=== PATIENT | male | born 2000 | race Caucasian/White ===

== ENCOUNTER 2020-08-20 20:41 | Emergency (ER) | payer SELFPAY ==
[~2020-08-20] VITALS: Ht 190.5 cm; Wt 145.0 kg
--- NOTE | 2020-08-20 21:04 | ED Integumentary General ---
General Chief Complaint: Skin/Wound Problems Stated Complaint: PAINFUL LUMP ON TAILBONE Source: patient History of Present Illness Date Seen by Provider: Aug 20, 2020 Time Seen by Provider: 21:01 Initial Comments 20-year-old male presenting with increasing pain and redness and swelling to the top of his buttocks. He states that this started on Wednesday and has progressively worsened. He was seen yesterday in urgent care and was started on an antibiotic that he takes twice a day but he is not sure of the name. He reports that the urgent care felt it was too early to try and perform an incision and drainage of the abscess. His pain is just continue to worsen significantly since yesterday and he is having overall body pain because of weaver ving to sit and move and on positions to keep pressure off of his abscess. He has subjective fever and chills. He denies having symptoms like this in the past. He has had a very small amount of drainage from this area. There is matted material on the abscess and stuck in the hair on it. Timing/Duration: getting worse Severity: severe Possible Cause: no cause identified Allergies and Home Medications Allergies Coded Allergies: No Known Drug Allergies (Unverified , 08/20/20) Home Medications Hydrocodone/Acetaminophen 1 Each Tablet, 1 TAB PO Q4H PRN for PAIN-SEVERE (8-10) Prescribed by: MAYUR BALDERAS on 08/20/20 1171 Patient Home Medication List Home Medication List Reviewed: Yes Review of Systems Review of Systems Constitutional: chills, fever (Subjective) EENTM: no symptoms reported Respiratory: no symptoms reported Cardiovascular: no symptoms reported Gastrointestinal: no symptoms reported Genitourinary: no symptoms reported Musculoskeletal: muscle stiffness (From holding his body in odd positions to keep pressure from the abscess) Skin: see HPI, change in color (Red painful area at the top part of his gluteal cleft) Psychiatric/Neurological: Anxiety Past Xrzvcye-Hgfvnn-Dqjsyp Hx Past Med/Social Hx: Reviewed Nursing Past Med/Soc Hx Patient Social History Alcohol Use: Denies Use Smoking Status: Never a Smoker 2nd Hand Smoke Exposure: No Recent Hopitalizations: No Seasonal Allergies Seasonal Allergies: No Past Medical History Surgeries: No Respiratory: No Cardiac: No Neurological: No Genitourinary: No Gastrointestinal: No Musculoskeletal: No Endocrine: No HEENT: No Cancer: No Psychosocial: No Integumentary: No Blood Disorders: No Adverse Reaction/Blood Tranf: No Physical Exam Vital Signs Vital Signs - First Documented 08/20/20 20:59 Temp 36.1 Pulse 118 Resp 18 B/P (MAP) 147/ Pulse Ox 99 O2 Delivery Room Air Capillary Refill : General Appearance: WD/WN, severe distress (Crying and complaining of severe pain to the area of his abscess), obese HEENT: PERRL/EOMI Neck: full range of motion, supple Cardiovascular: normal peripheral pulses, tachycardia Respiratory: chest non-tender, lungs clear, normal breath sounds Gastrointestinal: normal bowel sounds, non tender, soft Extremities: normal range of motion, normal capillary refill Neurologic/Psychiatric: security patrol officer II-XII nml as tested, alert, oriented x 3 Skin: warm/dry, other (Red, swollen, tender area to the superior portion of his gluteal cleft and towards the left butt cheek) Skin Problem Location: other (Superior gluteal cleft and towards the left buttock cheek) Skin Problem Character: erythema, swelling, tenderness, warm Procedures/Interventions I&D : Site: Pilonidal area/left butt cheek Blade Size: 10 I & D Procedure: sterile dressing applied, Wound Packing Progress After obtaining verbal informed consent the wound was cleaned with chlorhexidine surgical scrub prep. Then using a 1% plain lidocaine approximately 1 mL was infiltrated subcutaneously to help with anesthetic effect. Then a #10 blade scalpel was used to make a incision over the abscess. Then a large and copious amount of blood and purulent material was expressed from the wound. Patient did have some pain but overall tolerated this well. A wound culture was obtained and sent of the purulent drainage. The wound was packed with iodoform gauze after there was no further pus expressed from the wound. Patient was dressed with a sterile clean dry dressing. Counseled to have the packing changed every 24-48 hours and as needed if it falls out. Advised to follow-up through the surgical clinic for continued concerns and may need to have excision of pilonidal cyst. Progress/Results/Core Measures Results/Orders Lab Results Laboratory Tests Test 08/20/20 21:50 Range/Units White Blood Count 13.4 H 4.3-11.0 10^3/uL Red Blood Count 4.59 4.35-5.85 10^6/uL Hemoglobin 13.8 13.3-17.7 G/DL Hematocrit 40 40-54 % Mean Corpuscular Volume 88 80-99 FL Mean Corpuscular Hemoglobin 30 25-34 PG Mean Corpuscular Hemoglobin Concent 34 32-36 G/DL Red Cell Distribution Width 12.2 10.0-14.5 % Platelet Count 192 130-400 10^3/uL Mean Platelet Volume 12.7 H 7.4-10.4 FL Immature Granulocyte % (Auto) 0 % Neutrophils (%) (Auto) 83 H 42-75 % Lymphocytes (%) (Auto) 10 L 12-44 % Monocytes (%) (Auto) 6 0-12 % Eosinophils (%) (Auto) 1 0-10 % Basophils (%) (Auto) 0 0-10 % Neutrophils # (Auto) 11.1 H 1.8-7.8 X 10^3 Lymphocytes # (Auto) 1.3 1.0-4.0 X 10^3 Monocytes # (Auto) 0.8 0.0-1.0 X 10^3 Eosinophils # (Auto) 0.1 0.0-0.3 10^3/uL Basophils # (Auto) 0.0 0.0-0.1 10^3/uL Immature Granulocyte # (Auto) 0.0 0.0-0.1 10^3/uL Sodium Level 139 135-145 MMOL/L Potassium Level 3.8 3.6-5.0 MMOL/L Chloride Level 105 98-107 MMOL/L Carbon Dioxide Level 22 21-32 MMOL/L Anion Gap 12 5-14 MMOL/L Blood Urea Nitrogen 6 L 7-18 MG/DL Creatinine 1.03 0.60-1.30 MG/DL Estimat Glomerular Filtration Rate > 60 BUN/Creatinine Ratio 6 Glucose Level 100 70-105 MG/DL Lactic Acid Level 1.19 0.50-2.00 MMOL/L Calcium Level 9.3 8.5-10.1 MG/DL Corrected Calcium 9.1 8.5-10.1 MG/DL Total Bilirubin 0.3 0.1-1.0 MG/DL Aspartate Amino Transf (AST/SGOT) 16 5-34 U/L Alanine Aminotransferase (ALT/SGPT) 24 0-55 U/L Alkaline Phosphatase 62 40-136 U/L C-Reactive Protein 6.00 H <0.50 MG/DL Total Protein 7.2 6.4-8.2 GM/DL Albumin 4.2 3.2-4.5 GM/DL Smear Scan OK My Orders Orders - MAYUR BALDERAS MD Comprehensive Metabolic Panel (08/20/20 21:46) Ed Iv/Invasive Line Start (08/20/20 21:46) Cbc With Automated Diff (08/20/20 21:46) Ct Abdomen/Pelvis W (08/20/20 21:46) Blood Culture (08/20/20 21:46) Crp Fs (08/20/20 21:46) Lactic Acid Analyzer (08/20/20 21:46) Morphine Injection (Morphine Injection (08/20/20 21:48) Ondansetron Injection (Zofran Injectio (08/20/20 21:48) Ns Iv 1000 Ml (Sodium Chloride 0.9%) (08/20/20 21:48) Ketorolac Injection (Toradol Injection) (08/20/20 21:48) Metronidazole 500mg/100ml Ivpb (Flagyl 5 (08/20/20 21:51) Cefazolin Injection (Ancef Injection) (08/20/20 21:51) Iohexol Injection (Omnipaque 350 Mg/Ml 1 (08/20/20 22:00) Received Contrast (Hold Metformin- Contr (08/20/20 22:00) Ns (Ivpb) (Sodium Chloride 0.9% Ivpb Bag (08/20/20 22:00) Lidocaine 1% Inj 20 Ml (Xylocaine 1% Inj (08/20/20 22:44) Morphine Injection (Morphine Injection (08/20/20 22:44) Wound Dressing-Ed (08/20/20 22:44) Wound Culture (08/20/20 22:44) Rx-Hydrocodone/Apap 5-325 Mg (Rx-Vicodin (08/20/20 23:45) Medications Given in ED Current Medications Medications Dose Ordered Sig/Albin Route Start Time Stop Time Status Last Admin Dose Admin Iohexol 100 ml ONCE ONCE IV 08/20/20 22:00 08/20/20 22:01 DC 08/20/20 22:28 100 ML Sodium Chloride 100 ml ONCE ONCE IV 08/20/20 22:00 08/20/20 22:01 DC 08/20/20 22:28 100 ML Vital Signs/I&O 08/20/20 08/20/20 20:59 23:50 Temp 36.1 Pulse 118 88 Resp 18 18 B/P (MAP) 147/ 141/76 Pulse Ox 99 98 O2 Delivery Room Air Room Air 08/21/20 00:00 Intake Total 1110 ml Balance 1110 ml Progress Progress Note #1: Progress Note Obtain basic labs as well as cultures and lactic acid with a CRP. Order a CT scan with contrast to evaluate the abscess and see how extensive it is. If possible we will try to drain the abscess here in the emergency department and send a culture as well was packed the wound. If it seems to be too extensive to manage here in the emergency department may need to contact [facility] in [place] about possible transfer for surgical intervention. For his pain we will try a dose of morphine, give Zofran to help prevent nausea and vomiting from the morphine, Toradol for inflammation and pain. Give IV fluids for hydration. Start on a dose of Ancef and Flagyl for antibiotic coverage Progress Note #2: Progress Note Labs show a mild elevation of his white blood cell count. He has a normal lactic acid. His chemistry had mild elevation of his glucose. His CT scan did show an abscess with a 3.5 cm collection of fluid. Patient verbally consented for incision and drainage. Given an additional 4 mg of morphine prior to the procedure to assist with pain control. A copious amount of purulent drainage was obtained from the abscess when it was incised and drained. Packing material was placed and the patient tolerated procedure fairly well. Discharged on a few pain pills and have him continue with the Bactrim as prescribed from a clinic. Counseled on follow-up and return precautions. Advised that he may still need to have the pilonidal cyst surgically removed Diagnostic Imaging Diagonstic Imaging: CT Plain Films/CT/US/NM/MRI: abdomen, pelvis Comments Infected cyst or phlegmon developing abscess in the soft tissues in the sacrococcygeal area. This area measures approximately 3.5 cm. There is surrounding edema and inflammation. Read by radiologist Catie Green MD at [phone] and faxed at [phone] Reviewed: Reviewed Night [facility] Study Departure Impression Primary Impression: Pilonidal cyst with abscess Additional Impression: Cellulitis, gluteal, left Disposition: 01 HOME, SELF-CARE Condition: Improved Departure-Patient Inst. Decision time for Depature: 23:40 Referrals: MARIBEL CHAKRABORTY DO NO,LOCAL PHYSICIAN (PCP) Primary Care Physician [facility] Patient Instructions: Abscess Incision and Drainage ED, Cellulitis (Skin In fection), Adult ED, Pilonidal Cyst (DC) Add. Discharge Instructions: Change the packing in the wound every 24 to 48 hours or if it falls out. Otherwise try to keep it covered and keep it dry and clean. Continue to take antibiotics to treat for infection in skin around the wound. Call Dr. Chakraborty to follow up with surgeon about the wound and you will likely need to have pilonidal cyst removed to help prevent this from recurring. Take pain pill 20-30 minutes prior to dressing/packing change All discharge instructions reviewed with patient and/or family. Voiced under standing. Scripts Hydrocodone/Acetaminophen (Hydrocodone-Acetamin 5-325 mg) 1 Each Tablet 1 TAB PO Q4H PRN for PAIN-SEVERE (8-10) for 3 Days, #18 TAB 0 Refills Prov: MAYUR BALDERAS MD 08/20/20 Work/School Note: Work Release Form Date Seen in the Emergency Department: Aug 20, 2020 Return to Work: Aug 23, 2020 Restrictions: No Restrictions Images Torso/Trunk 1 - Cellulitis, Swelling, Tenderness (Tender swollen abscess with surrounding cellulitis. There is fluctuance and erythema with warmth.) MAYUR BALDERAS MD Aug 20, 2020 21:04
[2020-08-20] MEDS ORDERED: KETOROLAC 30 MG/ML VIAL IVP STA (21:48)
[2020-08-20] MEDS ORDERED: NS IV 1000 ML 1,000 ML IV STA (21:48)
[2020-08-20] MEDS ORDERED: ONDANSETRON 4 MG/2 ML (SDV) Z0FRAN IVP STA (21:48)
[2020-08-20] MEDS ORDERED: morphine INJ 10 MG/ML 1ML (SYR OR VIAL) IVP STA ×2 (21:48→22:44)
[2020-08-20] MEDS ORDERED: ceFAZolin INJECTION 1,000 MG in WATER (STERILE) FOR INJECTION 10 ML IV STA (21:51)
[2020-08-20] MEDS ORDERED: metroNIDAZOLE 500MG/100ML IVPB 100 ML IV STA (21:51)
[2020-08-20] MEDS ORDERED: HOLD METFORMIN - RECEIVED CONTRAST 20 ML VIAL IV SCH (22:00)
[2020-08-20] MEDS ORDERED: NS 100 ML (IVPB) BAG IV ONE (22:00)
[2020-08-20 22:02] LABS: EOSINOPHILS % (AUTO) 1 % (0-10); HEMATOCRIT 40 % (40-54); HEMOGLOBIN 13.8 G/DL (13.3-17.7); LYMPHOCYTES % (AUTO) 10 % (12-44); MEAN CORPUSCULAR HEMOGLOBIN 30 PG (25-34); MEAN CORPUSCULAR HGB CONC 34 G/DL (32-36); MEAN CORPUSCULAR VOLUME 88 FL (80-99); MEAN PLATELET VOLUME 12.7 FL (7.4-10.4); MONOCYTES % (AUTO) 6 % (0-12); NEUTROPHILS % (AUTO) 83 % (42-75); PLATELET COUNT 192 10^3/uL (130-400); WHITE BLOOD COUNT 13.4 10^3/uL (4.3-11.0)
[2020-08-20 22:03] LABS: BASOPHILS % (AUTO) 0 % (0-10); EOSINOPHILS # (AUTO) 0.1 10^3/uL (0.0-0.3); LYMPHOCYTES # (AUTO) 1.3 X 10^3 (1.0-4.0); MONOCYTES # (AUTO) 0.8 X 10^3 (0.0-1.0); NEUTROPHILS # (AUTO) 11.1 X 10^3 (1.8-7.8)
[2020-08-20] MEDS: IOHEXOL 350 MG/ML 100 ML (OMNIPAQUE 350) VIAL IV ONE ×2 (22:04→22:28)
[2020-08-20 22:13] LABS: SMEAR SCAN COMMENT OK
[2020-08-20 22:17] LABS: POTASSIUM 3.8 MMOL/L (3.6-5.0); SODIUM 139 MMOL/L (135-145)
[2020-08-20 22:18] LABS: ALANINE AMINOTRANSFERASE 24 U/L (0-55); ALBUMIN 4.2 GM/DL (3.2-4.5); ALKALINE PHOSPHATASE 62 U/L (40-136); BILIRUBIN,TOTAL 0.3 MG/DL (0.1-1.0); BUN/CREATININE RATIO 6; CALCIUM 9.3 MG/DL (8.5-10.1); CARBON DIOXIDE 22 MMOL/L (21-32); CHLORIDE 105 MMOL/L (98-107); CREATININE SERUM 1.03 MG/DL (0.60-1.30); GFR ESTIMATED > 60; GLUCOSE 100 MG/DL (70-105); TOTAL PROTEIN 7.2 GM/DL (6.4-8.2)
[2020-08-20] MEDS ORDERED: LIDOCAINE 1% INJ 20 ML 20 ML VIAL INJ STA (22:44)
[2020-08-20] MEDS ORDERED: ACHD5005 PO (23:44)
[2020-08-20] MEDS ORDERED: RX-HYDROCODONE/APAP 5/325 MG #4 TAB PK PO PRN (23:45)
[2020-08-20 23:50] VITALS: BP 141/76
--- NOTE | 2020-08-21 07:11 | Diagnostic Imaging Report ---
PROCEDURE: CT abdomen and pelvis with contrast. TECHNIQUE: Multiple contiguous axial images were obtained through the abdomen and pelvis after administration of intravenous contrast. Auto Exposure Controls were utilized during the CT exam to meet ALARA standards for radiation dose reduction. All CT scans use one or more of the following dose optimizing techniques: automated exposure control, MA and/or KvP adjustment based on patient size and exam type or iterative reconstruction. INDICATION: Abscess in tailbone. On antibiotic. Redness, swelling, pain to top of gluteal cleft. CORRELATION STUDY: None. FINDINGS: LOWER THORAX: Clear. LIVER: Mild fatty liver with mild nodularity. GALLBLADDER: Present and unremarkable. No bile duct dilatation. SPLEEN: Unremarkable. PANCREAS: Unremarkable. ADRENAL GLANDS: Unremarkable. KIDNEYS: Normal configuration. No calcification or obstruction. ABDOMINAL AORTA: Unremarkable, nonaneurysmal. GASTROINTESTINAL TRACT: No obstruction or inflammation. Normal appendix. URINARY BLADDER: Unremarkable. REPRODUCTIVE: Unremarkable. OSSEOUS STRUCTURES: No acute abnormality. OTHER: Approximately 3.5 cm thick-walled cystic collection in the soft tissues of the superior sacrococcygeal area is present. Surrounding haziness and inflammatory changes present. IMPRESSION: 1. Infected cyst or abscess in the soft tissues of the sacrococcygeal area measuring approximately 3.5 cm. Surrounding edema/inflammation. A preliminary report was provided by [facility]. Dictated by: Dictated on workstation # [id number]
== END 2020-08-20 23:50 | disposition home or self-care (01) ==
LOC: ER FS 20:44
DX: L05.01 Pilonidal cyst with abscess (principal); L03.317 Cellulitis of buttock
CPT/HCPCS: 36415; 74177; 80053; 83605; 85025; 86141; 87040; 87070; 87205

== ENCOUNTER 2020-09-04 11:11 | Emergency (ER) | payer OTHER ==
[~2020-09-04] VITALS: Ht 190.5 cm; Wt 143.1 kg
[~2020-09-04 11:11] MED LIST: ACHD5005 PO
[2020-09-04 11:15] VITALS: BP 155/88
--- NOTE | 2020-09-04 11:20 | ED Integumentary General ---
General Stated Complaint: WOUND CHECK History of Present Illness Date Seen by Provider: Sep 04, 2020 Time Seen by Provider: 11:18 Initial Comments 20-year-old male presents with pilonidal cyst. Patient was seen previously in this ER and started on antibiotics and had a incised. He followed up with Dr. Tello last week and it has been improving. Patient reports that it started to get worse at this time. Patient reports that Dr. Tello indicated that they can watch and at some point later on open up and do further surgery on it. He presents because of worsening pain and feels like his "filling backed up" Allergies and Home Medications Allergies Coded Allergies: No Known Drug Allergies (Unverified , 08/20/20) Home Medications Hydrocodone/Acetaminophen 1 Each Tablet, 1 TAB PO Q4H PRN for PAIN-SEVERE (8-10) Prescribed by: MAYUR BALDERAS on 08/20/20 6786 Patient Home Medication List Home Medication List Reviewed: Yes Review of Systems Review of Systems Constitutional: No chills, No fever Respiratory: No cough Cardiovascular: No chest pain Genitourinary: no symptoms reported Musculoskeletal: see HPI Skin: see HPI Psychiatric/Neurological: No Symptoms Reported Endocrine: No Symptoms Reported Past Aecjdrc-[id number]-Jlzctq Hx Past Med/Social Hx: Reviewed Nursing Past Med/Soc Hx Patient Social History 2nd Hand Smoke Exposure: No Recent Hopitalizations: No Seasonal Allergies Seasonal Allergies: No Past Medical History Surgeries: No Respiratory: No Cardiac: No Neurological: No Genitourinary: No Gastrointestinal: No Musculoskeletal: No Endocrine: No HEENT: No Cancer: No Psychosocial: No Integumentary: No Blood Disorders: No Adverse Reaction/Blood Tranf: No Physical Exam Vital Signs Capillary Refill : General Appearance: no apparent distress Cardiovascular: normal peripheral pulses, regular rate, rhythm Respiratory: chest non-tender, lungs clear Gastrointestinal: non tender, soft Neurologic/Psychiatric: alert, oriented x 3 Progress/Results/Core Measures Progress Progress Note : Time: 11:36 Progress Note When I discussed with patient that we would do a repeat I&D and restart him on antibiotics, he asked that if he could instead be seen by Dr. Tello. Dr. Tello is currently division roadmaster. So I did call Dr. Tello who states that he can see him this afternoon in the ER. Patient is to call his office For an appointment. Based on patient's request no further treatment will be initiated. Patient stable. He reports that he has Dr. Tello's office number and will call upon discharge. Departure Impression Primary Impression: Pilonidal cyst with abscess Disposition: HOME, SELF-CARE Condition: Stable Departure-Patient Inst. Referrals: NO,LOCAL PHYSICIAN (PCP/Family) Primary Care Physician Add. Discharge Instructions: Follow-up with Dr. Tello's office this afternoon. Please call for appointment time upon discharge from the emergency room NAFISA LOAIZA DO Sep 04, 2020 11:20
== END 2020-09-04 11:42 | disposition home or self-care (01) ==
LOC: EDUNIT# 11:11 → ER FS 11:13
DX: L05.01 Pilonidal cyst with abscess (principal)
CPT/HCPCS: 99282

== ENCOUNTER 2020-09-10 08:00 | Outpatient (CLI) | payer OTHER ==
[~2020-09-10] VITALS: Ht 190.5 cm; Wt 145.6 kg
[2020-09-11] MEDS ORDERED: ACHYD1T PO (13:03)
== END 2020-09-10 08:30 | disposition home or self-care (01) ==
LOC: PREOP 08:00
PROVIDERS: ATTEND Surgery
DX: Z01.818 Encounter for other preprocedural examination (principal)

== ENCOUNTER 2020-09-11 09:25 | Day surgery (SDC) | payer OTHER ==
[~2020-09-11] VITALS: Ht 190 cm; Wt 145.6 kg
[2020-09-11] VITALS (11 sets, daily range): BP systolic 120–138; BP diastolic 64–96
[2020-09-11] MEDS ORDERED: ceFAZolin 2 GM IV Premixed 50 ML IV ONE (10:15)
[2020-09-11] MEDS ORDERED: LACTATED RINGERS 1,000 ML IV PRN (10:15)
[2020-09-11] MEDS ORDERED: LIDOCAINE/EPI 1%-1:100,000 (XYLOCAINE) 20ML ONE (11:16)
[2020-09-11] MEDS ORDERED: proPOfol 200 MG/20 ML (DIPRIVAN) VIAL IV ONE ×2 (11:24→12:20)
[2020-09-11] MEDS ORDERED: LIDOCAINE PF 2% 5 ML (XYLOCAINE) VIAL ONE (11:24)
[2020-09-11] MEDS ORDERED: SEVOFLURANE (ULTANE) 15 ML INHAL SOLN ONE (11:24)
[2020-09-11] MEDS ORDERED: ONDANSETRON 4 MG/2 ML (SDV) Z0FRAN ONE (11:24)
[2020-09-11] MEDS ORDERED: ROCURONIUM 10 MG/ML 5 ML SYRINGE IV ONE (11:25)
[2020-09-11] MEDS ORDERED: fentaNYL INJ 100 MCG/2 ML AMP ONE (11:25)
[2020-09-11] MEDS ORDERED: MIDAZOLAM 2 MG/2 ML (VERSED) VIAL ONE (11:25)
--- NOTE | 2020-09-11 12:01 | Progress Note-Pre Operative ---
Pre-Operative Progress Note H&P Reviewed The H&P was reviewed, patient examined and no changes noted. Time Seen by Provider: 11:04 Date H&P Reviewed: Sep 11, 2020 Time H&P Reviewed: 11:05 Pre-Operative Diagnosis: Pilonidal cyst MEETA CLARK DO Sep 11, 2020 12:01
[2020-09-11] MEDS ORDERED: GLYCOPYRROLATE 0.2 MG/ML (ROBINUL) 2 ML VIAL ONE (12:27)
[2020-09-11] MEDS ORDERED: NEOSTIGMINE 3 MG/3 ML VIAL ONE (12:27)
[2020-09-11] MEDS ORDERED: morphine INJ 10 MG/ML 1ML (SYR OR VIAL) IVP ONE (12:45)
[2020-09-11] MEDS ORDERED: HYDROmorphone 2 MG/ML VIAL (DILAUDID) IV ONE (12:45)
[2020-09-11] MEDS ORDERED: ONDANSETRON 4 MG/2 ML (SDV) Z0FRAN IVP PRN (12:45)
--- NOTE | 2020-09-11 13:01 | Progress Note-Post Operative ---
Post-Operative Progess Note Surgeon (s)/Technician Test Systems (s) Surgeon MEETA CLARK DO Technician Test Systems: none Pre-Operative Diagnosis Pilonidal cyst Post-Operative Diagnosis same Procedure & Operative Findings Date of Procedure 09/11/20 Procedure Performed/Findings Excision of Pilonidal cyst with iodophor packing Anesthesia Type GET Estimated Blood Loss Estimated blood loss (mL): less than 5ml Specimens/Packing Specimens Removed pilonidal cyst MEETA CLARK DO Sep 11, 2020 13:01
[2020-09-11] MEDS ORDERED: ACHYD1T PO (13:03)
--- NOTE | 2020-09-11 13:03 | Discharge Inst-Surgical ---
Discharge Inst-Surgical Depart Medication/Instructions New, Converted or Re-Newed RX: RX Given to Pt/Family Patient Instructions Follow up Appt: Make appointment for 1 week. [phone] Instructions: No lifting greater than 20 pounds. No strenuous activity. May shower in 24 hours, no tub bath or soaking. Use incentive spirometer at home as directed. No Smoking Skin/Wound Care: May remove bandages in am. You need to come to the office to have packing changed daily. Symptoms to Report: Appetite Changes, Extremity Discoloration, Numbness/Tingling, Swelling Increased, Bleeding Excessive, Eyesight Changes, Pain Increased, Urine Color Change, Constipation(Persistent), Fever over 101 degree F, Pain/Pressure in chest, Urinating Difficulty, Cough Up/Vomit Blood, Heart Beat Irreg/Pounding, Pain/Pressure in jaw, Cramps in feet or legs, Lightheadedness, Pain/Pressure in shoulder, Diarrhea(Persistent), Memory Changes Suddenly, Questions/Concerns, Weight gain consecutive days, Dizziness/Fainting, Nausea/Vomiting, Shortness of Breath, Weight gain over 2 pounds If questions or concerns contact your physician Or seek help at emergency department. Activity Activity as Tolerated: Yes Activity Instructions: Avoid Stress to Incision Driving Instructions: No Driving/Refer to Dr. Maynard Discharge Diet: No Restrictions Diet After 24 Hours: Clear Liquid if Nauseous If Any Problems/Questions/Issu: Contact Your Physician, Go to Emergency Room Skin/Wound Care Infection Signs and Symptoms: Increased Redness, Foul Odor of Wound, Increased Drainage, Skin Itchy or Has a Rash, Increased Swelling, Temperature Above 101 F MEETA CLARK DO Sep 11, 2020 13:02
--- NOTE | 2020-09-11 14:51 | Anesthesia-General Post-Op ---
General Patient Condition Mental Status/LOC: Same as Preop Cardiovascular: Satisfactory Nausea/Vomiting: Absent Respiratory: Satisfactory Pain: Controlled Complications: Absent Post Op Complications Complications None Follow Up Care/Instructions Patient Instructions None needed. Anesthesia/Patient Condition Patient Condition Patient was seen after the procedure and he was doing well, no complaints, stable vital signs, no apparent adverse anesthesia problems. ALAINA SHEFFIELD DO Sep 11, 2020 14:51
--- NOTE | 2020-09-11 18:03 | OPERATIVE REPORT ---
DATE OF SERVICE: 09/11/2020 PREOPERATIVE DIAGNOSIS: Pilonidal cyst. POSTOPERATIVE DIAGNOSIS: Pilonidal cyst. PROCEDURE PERFORMED: Excision of pilonidal cyst with iodoform packing. SURGEON: Christiano Tello DO. PHONE BANKER: None. ANESTHESIA: General endotracheal tube. SPECIMEN: Pilonidal cyst. BLOOD LOSS: Less than 5 mL. FLUIDS: Per anesthesia. POSTOPERATIVE CONDITION: Stable. INDICATION FOR PROCEDURE: The patient is a 20-year-old male, who has a pilonidal cyst that has been draining and he wants to get this removed. FINDINGS: The patient had a pilonidal cyst. It was actually just lateral to the midline on the left side and went to the diagonal towards the small opening in the crease between the two buttock cheeks. PROCEDURE NOTE: After informed consent was obtained, the patient was brought to the operating room. He was intubated and placed on table in a prone position. He was sterilely prepped and draped in a normal fashion. The lidocaine was used to infiltrate the skin around this pilonidal cyst. It was about a centimeter from gluteal crease to the patient's left side. I elected to do an elliptical incision diagonally coming from the outside of the abscess area towards the midline pilonidal cyst, then made an incision with #15 blade, carried down through the skin into subcutaneous tissue, deepened down to subcutaneous tissue with Bovie electrocautery, taking this down all the way to the sacrum, removing all of the abscess cavity and the midline pilonidal cyst, passing this off the table. Hemostasis was obtained using Bovie electrocautery. Copiously irrigated with normal saline and then packed with a half inch iodoform packing. The area was cleaned and dried. A pressure dressing was placed. The patient was transferred to recovery room in stable condition. Sponge, instrument and needle count correct at the end of the case. Job ID: [id number] DocumentID: [id number] Dictated Date: 09/11/2020 13:07:44 Manual Arts Teacher Date: 09/11/2020 18:03:23 Dictated By: CHRISTIANO TELLO DO [facility]
== END 2020-09-11 15:10 ==
LOC: SDC 09:25
PROVIDERS: ATTEND Surgery
DX: L05.91 Pilonidal cyst without abscess (principal); E66.01 Morbid (severe) obesity due to excess calories; Z68.41 Body mass index [BMI] 40.0-44.9, adult; Z79.899 Other long term (current) drug therapy
CPT/HCPCS: 87081; 88304

== ENCOUNTER 2021-11-16 04:37 | Emergency (ER) | payer SELFPAY ==
[~2021-11-16] VITALS: Ht 190 cm; Wt 133.8 kg
[~2021-11-16 04:37] MED LIST changes: +ACHYD1T PO
[2021-11-16] MEDS ORDERED: LACTATED RINGERS 1,000 ML IV ONE (05:45)
--- NOTE | 2021-11-16 05:46 | ED Abdominal Pain ---
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 NO BLACK/BLOODY/TARRY STOOLS NO URINARY SYMPTOMS NO FEVER/SWEATS/CHILLS NO COUGH/CONGESTION/SHORTNESS OF BREATH/CHEST PAIN OR RECENT ILLNESS NO HISTORY OF SIMILAR NO PRIOR GI PROBLEMS OR ABDOMINAL SURGERIES NO CHRONIC MEDICAL PROBLEMS AND DOES NOT TAKE ANY MEDICATION PT HAS NOT HAD COVID OR FLU VACCINES PCP: NONE--JUST MOVED TO [place] FROM [facility] A COUPLE OF MONTHS AGO, AND HAD BEEN LIVING IN [place] FOR 1 1/2 YEARS PRIOR TO THAT --ORIGINALLY FROM [place]. USED TO GO TO DR. VALLADARES IN [place] WHEN HE USED TO LIVE THERE (ANATOLIY NAYAK DO) Allergies and Home Medications Allergies Coded Allergies: No Known Drug Allergies (Unverified , 09/11/20) Patient Home Medication List Home Medication List Reviewed: Yes (JUAN KIRKPATRICK MD) Dicyclomine HCl (Dicyclomine HCl) 20 Mg Tablet, 20 MG PO Q6H PRN for abdominal cramping Prescribed by: JUAN KIRKPATRICK on 11/16/21 0730 Hydrocodone Bit/Acetaminophen (HYDROcodone/APAP 10/325 TABLET) 1 Ea Tab, 1 TAB PO Q6H Prescribed by: MEETA CLARK on 09/11/20 1303 Review of Systems Review of Systems Constitutional: no symptoms reported EENTM: No Symptoms Reported Respiratory: No Symptoms Reported Cardiovascular: No Symptoms Reported Gastrointestinal: See HPI, Abdominal Pain, Diarrhea; Denies Nausea, Denies Poor Appetite, Denies Poor Fluid Intake, Denies Rectal Bleeding, Denies Vomiting Genitourinary: No Symptoms Reported Musculoskeletal: no symptoms reported; No back pain Skin: no symptoms reported; No rash Psychiatric/Neurological: No Symptoms Reported Endocrine: No Symptoms Reported Hematologic/Lymphatic: No Symptoms Reported (ANATOLIY NAYAK DO) Past Hrrtnyh-Dcidxp-Myipcl Hx Patient Social History Tobacco Use?: Yes Tobacco type used: Cigarettes Smoking Status: Current Everyday Smoker Use of E-Cig and/or Vaping dev: Yes E-Cig or Vaping type used: Nicotine Substance use?: Yes (ONLY ADMITS TO THC) Substance type: Amphetamines, Methamphetamine, Marijuana Additional substance use comme: UDS + FOR METH/AMPHETAMINES, THC ON 11/16/21 Alcohol Use?: Yes (ANATOLIY NAYAK DO) Immunizations Up To Date Tetanus Booster (TDap): Unknown (ANATOLIY NAYAK DO) Seasonal Allergies Seasonal Allergies: No (ANATOLIY NAYAK DO) Past Medical History Surgeries: Yes (PILONIDAL CYST REMOVED) Respiratory: No Cardiac: No Neurological: No Genitourinary: No Gastrointestinal: No Musculoskeletal: No Endocrine: No HEENT: No Cancer: No Psychosocial: No Integumentary: Yes (PILONIDAL CYST REMOVED) Blood Disorders: No Adverse Reaction/Blood Tranf: No (ANATOLIY NAYAK DO) Physical Exam Vital Signs Vital Signs - First Documented 11/16/21 05:05 Temp 36.5 Pulse 67 Resp 20 B/P (MAP) 152/111 (125) Pulse Ox 98 O2 Delivery Room Air (JUAN KIRKPATRICK MD) Vital Signs Capillary Refill : (ANATOLIY NAYAK DO) Height/Weight/BMI Height: '" Weight: lbs. oz. kg; 40.33 BMI Method:Actual General Appearance: WD/WN, no apparent distress, obese, other (DOES NOT APPEAR ILL OR TO BE IN ANY DISCOMFORT OR DISTRESS. LEGS OUTSTRETCHED. 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, no motor/sensory deficits, alert, normal mood/affect, oriented x 3 Skin: normal color, warm/dry; No rash (ANATOLIY NAYAK DO) Progress/Results/Core Measures Results/Orders Lab Results Laboratory Tests Test 11/16/21 05:13 11/16/21 05:20 Range/Units Urine Color YELLOW Urine Clarity CLEAR Urine pH 6.5 5-9 Urine Specific [place] 1.015 L 1.016-1.022 Urine Protein NEGATIVE NEGATIVE Urine Glucose (UA) NEGATIVE NEGATIVE Urine Ketones NEGATIVE NEGATIVE Urine Nitrite NEGATIVE NEGATIVE Urine Bilirubin NEGATIVE NEGATIVE Urine Urobilinogen 0.2 < = 1.0 MG/DL Urine Leukocyte Esterase NEGATIVE NEGATIVE Urine RBC (Auto) NEGATIVE NEGATIVE Urine RBC NONE /HPF Urine WBC NONE /HPF Urine Squamous Epithelial Cells NONE /HPF Urine Crystals NONE /LPF Urine Bacteria NEGATIVE /HPF Urine Casts NONE /LPF Urine Mucus NEGATIVE /LPF Urine Culture Indicated NO Urine Opiates Screen NEGATIVE NEGATIVE Urine Oxycodone Screen NEGATIVE NEGATIVE Urine Methadone Screen NEGATIVE NEGATIVE Urine Propoxyphene Screen NEGATIVE NEGATIVE Urine Barbiturates Screen NEGATIVE NEGATIVE Ur Tricyclic Antidepressants Screen NEGATIVE NEGATIVE Urine Phencyclidine Screen NEGATIVE NEGATIVE Urine Amphetamines Screen POSITIVE H NEGATIVE Urine Methamphetamines Screen POSITIVE H NEGATIVE Urine Benzodiazepines Screen NEGATIVE NEGATIVE Urine Cocaine Screen NEGATIVE NEGATIVE Urine Cannabinoids Screen POSITIVE H NEGATIVE White Blood Count 11.3 H 4.3-11.0 10^3/uL Red Blood Count 4.95 4.30-5.52 10^6/uL Hemoglobin 15.1 13.3-17.7 g/dL Hematocrit 44 40-54 % Mean Corpuscular Volume 89 80-99 fL Mean Corpuscular Hemoglobin 31 25-34 pg Mean Corpuscular Hemoglobin Concent 34 32-36 g/dL Red Cell Distribution Width 12.0 10.0-14.5 % Platelet Count 231 130-400 10^3/uL Mean Platelet Volume 12.5 H 9.0-12.2 fL Immature Granulocyte % (Auto) 0 % Neutrophils (%) (Auto) 71 42-75 % Lymphocytes (%) (Auto) 22 12-44 % Monocytes (%) (Auto) 6 0-12 % Eosinophils (%) (Auto) 1 0-10 % Basophils (%) (Auto) 0 0-10 % Neutrophils # (Auto) 8.1 H 1.8-7.8 10^3/uL Lymphocytes # (Auto) 2.5 1.0-4.0 10^3/uL Monocytes # (Auto) 0.6 0.0-1.0 10^3/uL Eosinophils # (Auto) 0.1 0.0-0.3 10^3/uL Basophils # (Auto) 0.1 0.0-0.1 10^3/uL Immature Granulocyte # (Auto) 0.0 0.0-0.1 10^3/uL Sodium Level 140 135-145 MMOL/L Potassium Level 4.2 3.6-5.0 MMOL/L Chloride Level 105 98-107 MMOL/L Carbon Dioxide Level 22 21-32 MMOL/L Anion Gap 13 5-14 MMOL/L Blood Urea Nitrogen 9 7-18 MG/DL Creatinine 0.90 0.60-1.30 MG/DL Estimat Glomerular Filtration Rate 124 BUN/Creatinine Ratio 10 Glucose Level 100 70-105 MG/DL Calcium Level 9.8 8.5-10.1 MG/DL Corrected Calcium 8.5-10.1 MG/DL Total Bilirubin 0.4 0.1-1.0 MG/DL Aspartate Amino Transf (AST/SGOT) 21 5-34 U/L Alanine Aminotransferase (ALT/SGPT) 48 0-55 U/L Alkaline Phosphatase 54 40-136 U/L Total Protein 7.8 6.4-8.2 GM/DL Albumin 4.6 H 3.2-4.5 GM/DL Amylase Level 37 25-125 U/L Lipase 25 8-78 U/L Serum Alcohol < 10 <10 MG/DL (JUAN KIRKPATRICK MD) Medications Given in ED (JUAN KIRKPATRICK MD) Vital Signs/I&O 11/16/21 11/16/21 05:05 07:37 Temp 36.5 36.5 Pulse 67 70 Resp 20 20 B/P (MAP) 152/111 (125) 157/107 Pulse Ox 98 98 O2 Delivery Room Air Room Air (JUAN KIRKPATRICK MD) Progress Progress Note : Progress Note 0600--CARE TURNED OVER TO DR. KIRKPATRICK, ALL STUDIES PENDING (ANATOLIY NAYAK DO) Progress Note : Time: 07:27 Progress Note Patient reassessed after labs and CT. He is resting comfortably. We talked about his labs including his drug screen and his CT results. Patient is adamant that he does not use methamphetamine. He does have multiple roommates that he said that he is going to go home and "investigate". He states he is never used methamphetamine. He does admit to THC. He is quite concerned about this positive drug screen. We talked about biliary colic/gallbladder disease. I am going to send him home with a prescription for some Bentyl to take over the next week or 2 to see if this helps with his symptoms. We talked about return precautions. He is comfortable with the plan of care. All questions are sought and answered. (JUAN KIRKPATRICK MD) Departure Impression Primary Impression: Abdominal pain Qualified Codes: R10.11 - Right upper quadrant pain Disposition: HOME, SELF-CARE Condition: Stable Departure-Patient Inst. Decision time for Depature: 07:28 (JUAN KIRKPATRICK MD) Referrals: [facility],LOCAL PHYSICIAN (PCP) Primary Care Physician Patient Instructions: Abdominal Pain, Adult ED, Gallbladder Diet, LOCAL PHYSICIAN LIST Add. Discharge Instructions: Take the Bentyl 30 minutes before eating up to 4 times a day. This will help with right upper abdomen discomfort/cramping. Avoid fatty foods because these can potentially irritate the gallbladder. If you have worsening pain especially with a fever over 100.4, persistent nausea vomiting with worsening pain or any other emergent concerning symptoms please come back to the emergency department for reevaluation. You should obtain a family doctor for further evaluation and management of this pain. Scripts Dicyclomine HCl (Dicyclomine HCl) 20 Mg Tablet 20 MG PO Q6H PRN for abdominal cramping, #30 TAB Prov: JUAN KIRKPATRICK MD 11/16/21 ANATOLIY NAYAK DO Nov 16, 2021 05:46 JUAN KIRKPATRICK MD Nov 16, 2021 07:31
[2021-11-16 05:51] LABS: BASOPHILS # (AUTO) 0.1 10^3/uL (0.0-0.1); BASOPHILS % (AUTO) 0 % (0-10); EOSINOPHILS # (AUTO) 0.1 10^3/uL (0.0-0.3); EOSINOPHILS % (AUTO) 1 % (0-10); HEMATOCRIT 44 % (40-54); HEMOGLOBIN 15.1 g/dL (13.3-17.7); LYMPHOCYTES # (AUTO) 2.5 10^3/uL (1.0-4.0); LYMPHOCYTES % (AUTO) 22 % (12-44); MEAN CORPUSCULAR HEMOGLOBIN 31 pg (25-34); MEAN CORPUSCULAR HGB CONC 34 g/dL (32-36); MEAN CORPUSCULAR VOLUME 89 fL (80-99); MEAN PLATELET VOLUME 12.5 fL (9.0-12.2); MONOCYTES # (AUTO) 0.6 10^3/uL (0.0-1.0); MONOCYTES % (AUTO) 6 % (0-12); NEUTROPHILS # (AUTO) 8.1 10^3/uL (1.8-7.8); NEUTROPHILS % (AUTO) 71 % (42-75); PLATELET COUNT 231 10^3/uL (130-400); WHITE BLOOD COUNT 11.3 10^3/uL (4.3-11.0)
[2021-11-16 05:58] LABS: ALBUMIN 4.6 GM/DL (3.2-4.5); CHLORIDE 105 MMOL/L (98-107); POTASSIUM 4.2 MMOL/L (3.6-5.0); SODIUM 140 MMOL/L (135-145)
[2021-11-16 05:59] LABS: AMYLASE 37 U/L (25-125)
[2021-11-16 05:59] LABS: BILIRUBIN,URINE NEGATIVE (NEGATIVE); CLARITY,URINE CLEAR; COLOR,URINE YELLOW; GLUCOSE, URINE (UA) NEGATIVE (NEGATIVE); KETONES,URINE NEGATIVE (NEGATIVE); LEUKOCYTE ESTERASE ,URINE NEGATIVE (NEGATIVE); NITRITE,URINE NEGATIVE (NEGATIVE); PH,URINE 6.5 (5-9); PROTEIN,URINE NEGATIVE (NEGATIVE)
[2021-11-16 06:00] LABS: CALCIUM 9.8 MG/DL (8.5-10.1)
[2021-11-16 06:01] LABS: GLUCOSE 100 MG/DL (70-105); TOTAL PROTEIN 7.8 GM/DL (6.4-8.2)
[2021-11-16 06:02] LABS: CARBON DIOXIDE 22 MMOL/L (21-32)
[2021-11-16 06:03] LABS: BILIRUBIN,TOTAL 0.4 MG/DL (0.1-1.0)
[2021-11-16 06:04] LABS: ALKALINE PHOSPHATASE 54 U/L (40-136)
[2021-11-16 06:05] LABS: GFR ESTIMATED 124
[2021-11-16 06:06] LABS: BUN/CREATININE RATIO 10
[2021-11-16 06:07] LABS: ALANINE AMINOTRANSFERASE 48 U/L (0-55)
[2021-11-16 06:08] LABS: LIPASE 25 U/L (8-78)
[2021-11-16 06:12] LABS: BACTERIA,URINE NEGATIVE /HPF
[2021-11-16 06:14] LABS: AMPHETAMINE SCREEN, URINE POSITIVE (NEGATIVE); BARBITURATE SCREEN URINE NEGATIVE (NEGATIVE); BENZODIAZEPINES SCREEN URINE NEGATIVE (NEGATIVE); CANNABINOID SCREEN, URINE POSITIVE (NEGATIVE); COCAINE SCREEN URINE NEGATIVE (NEGATIVE); METHADONE STAT NEGATIVE (NEGATIVE); OPIATE SCREEN URINE NEGATIVE (NEGATIVE); OXYCODONE STAT NEGATIVE (NEGATIVE); PROPOXYPHENE STAT NEGATIVE (NEGATIVE); TRICYCLIC ANTIDEPRESSANTS SCRE NEGATIVE (NEGATIVE)
[2021-11-16] MEDS ORDERED: CATHETER FLUSH 10 ML SYR IV PRN (07:00)
[2021-11-16] MEDS ORDERED: NS 100 ML (IVPB) BAG IV ONE (07:00)
[2021-11-16] MEDS ORDERED: IOHEXOL 350 MG/ML 100 ML (OMNIPAQUE 350) VIAL IV ONE (07:00)
--- NOTE | 2021-11-16 07:09 | Diagnostic Imaging Report ---
EXAMINATION: CT abdomen and pelvis with intravenous contrast. TECHNIQUE: Multiple contiguous axial images were obtained through the abdomen and pelvis after the uneventful administration of intravenous contrast. All CT scans use one or more of the following dose optimizing techniques: automated exposure control, MA and/or KvP adjustment based on patient size and exam type or iterative reconstruction. HISTORY: Right upper quadrant pain COMPARISON: 08/20/2020 FINDINGS: Limited views of the lower thorax are unremarkable. The liver is normal without focal lesion. There is no biliary ductal dilation. Gallbladder is normal. Pancreas is normal. Spleen is normal. Adrenal glands are normal. The kidneys are normal. There is no hydronephrosis. Urinary bladder is normal. Bowel is normal in caliber without obstruction or inflammation. The appendix is normal. No free fluid or air. No abdominal or pelvic lymphadenopathy. Aorta is normal in caliber without aneurysm. There are no suspicious osseus lesions. IMPRESSION: 1. No acute abnormality in the abdomen or pelvis. Dictated by: Dictated on workstation # [id number]
[2021-11-16] MEDS ORDERED: DICY20TA PO (07:30)
[2021-11-16 07:37] VITALS: BP 157/107
== END 2021-11-16 07:37 | disposition home or self-care (01) ==
LOC: EDUNIT# 04:37 → ER 04:39
DX: R10.11 Right upper quadrant pain (principal)
CPT/HCPCS: 74177; 80053; 80306; 81000; 82150; 83690; 85025; 99284; G0480; 36415; 80320

== ENCOUNTER 2022-01-28 23:17 | Emergency (ER) | payer SELFPAY ==
[~2022-01-28] VITALS: Ht 190.5 cm; Wt 135.7 kg
[~2022-01-28 23:17] MED LIST changes: +DICY20TA PO
--- NOTE | 2022-01-28 23:49 | ED Chest Pain ---
General Chief Complaint: Chest Wall Stated Complaint: CP,LEFT ARM SORENESS Nursing Triage Note: PT ARRIVAL TO ER WITH COMPLAINT OF INTERMITTENT CHEST PAIN X2 DAYS. PT STATES THAT WHEN ITS PRESENT ITS A PRESSURE LIKE PAIN RATED AT 4/10. PT NOTICES MORE IN THE EVENING AFTER WORK. PT HAS NO OTHER SYMPTOMS. PT DENIES PAST MEDICAL HISTORY OR CARDIAC HISTORY. Source: patient Exam Limitations: no limitations History of Present Illness Date Seen by Provider: Jan 28, 2022 Time Seen by Provider: 23:26 Initial Comments Patient to the ER by private conveyance from home with chief complaint that since Wednesday, 2 days ago he has been having some intermittent stabbing sharp left-sided chest pain radiating to his left shoulder. Made worse with certain movements. He was watching TV tonight when it came on again and this concerned him so he decided to come to get checked out. No personal history of coronary disease. He does not have a history of lung disease but he does smoke cigarettes through a vaporizer as well as cannabis. He denies any stimulant drug use. He does not drink alcohol. He has only infrequent GERD. He does not take any medications routinely. No trauma. Chest pain is reproducible by direct palpation of the left margin of his sternum. He did not take anything for the pain tonight. Allergies and Home Medications Allergies Coded Allergies: No Known Drug Allergies (Unverified , 09/11/20) Patient Home Medication List Home Medication List Reviewed: Yes Dicyclomine HCl (Dicyclomine HCl) 20 Mg Tablet, 20 MG PO Q6H PRN for abdominal cramping Prescribed by: JUAN KIRKPATRICK on 11/16/21 0730 Hydrocodone Bit/Acetaminophen (HYDROcodone/APAP 10/325 TABLET) 1 Ea Tab, 1 TAB PO Q6H Prescribed by: MEETA CLARK on 09/11/20 1303 Naproxen (Naprosyn) 500 Mg Tablet, 500 MG PO BID Prescribed by: EUN CEBALLOS on 01/29/22 0110 Review of Systems Review of Systems Constitutional: No chills, No fever, No malaise EENTM: No Blurred Vision, No Double Vision Respiratory: Denies Cough, Denies Shortness of Air Cardiovascular: Denies Chest Pain, Denies Lightheadedness Gastrointestinal: Denies Constipated, Denies Diarrhea, Denies Nausea, Denies Vomiting Musculoskeletal: No back pain, No joint pain Skin: No pruritus, No rash Psychiatric/Neurological: Denies Headache, Denies Numbness All Other Systems Reviewed Negative Unless Noted: No Past Ltkzisn-Osyvxs-Ppptqp Hx Patient Social History Tobacco Use?: Yes Tobacco type used: Cigarettes Smoking Status: Current Everyday Smoker Use of E-Cig and/or Vaping dev: No Substance use?: No Alcohol Use?: No Pt feels they are or have been: No Immunizations Up To Date Tetanus Booster (TDap): Unknown Influenza Vaccine Up-to-Date: No; Not Current Seasonal Allergies Seasonal Allergies: No Past Medical History Surgeries: Yes (PILONIDAL CYST REMOVED) Respiratory: No Cardiac: No Neurological: No Genitourinary: No Gastrointestinal: No Musculoskeletal: No Endocrine: No HEENT: No Cancer: No Psychosocial: No Integumentary: Yes (PILONIDAL CYST REMOVED) Blood Disorders: No Adverse Reaction/Blood Tranf: No Physical Exam Vital Signs Vital Signs - First Documented 01/28/22 23:26 Temp 36.9 Pulse 91 Resp 18 B/P (MAP) 148/100 (116) Pulse Ox 100 O2 Delivery Room Air Capillary Refill : Less Than 3 Seconds Height, Weight, BMI Height: '" Weight: lbs. oz. kg; 37.00 BMI Method:Actual General Appearance: No Apparent Distress, WD/WN, Obese HEENT: PERRL/EOMI, Pharynx Normal, Moist Mucous Membranes Neck: Full Range of Motion, Normal Inspection Respiratory: No Chest Non Tender (Chest pain reproducible to direct palpation of the left sternal margin); Lungs Clear, Normal Breath Sounds, No Accessory Muscle Use, No Respiratory Distress Cardiovascular: Regular Rate, Rhythm, No Edema Gastrointestinal: Non Tender, Soft Extremity: Normal Capillary Refill, Normal Inspection, No Pedal Edema Neurologic/Psychiatric: Alert, Oriented x3 Skin: Normal Color, Warm/Dry Progress/Results/Core Measures Results/Orders Lab Results Laboratory Tests Test 01/28/22 00:16 Range/Units White Blood Count 10.2 4.3-11.0 10^3/uL Red Blood Count 4.39 4.30-5.52 10^6/uL Hemoglobin 13.2 L 13.3-17.7 g/dL Hematocrit 39 L 40-54 % Mean Corpuscular Volume 88 80-99 fL Mean Corpuscular Hemoglobin 30 25-34 pg Mean Corpuscular Hemoglobin Concent 34 32-36 g/dL Red Cell Distribution Width 12.2 10.0-14.5 % Platelet Count 215 130-400 10^3/uL Mean Platelet Volume 12.4 H 9.0-12.2 fL Immature Granulocyte % (Auto) 0 % Neutrophils (%) (Auto) 67 42-75 % Lymphocytes (%) (Auto) 24 12-44 % Monocytes (%) (Auto) 7 0-12 % Eosinophils (%) (Auto) 1 0-10 % Basophils (%) (Auto) 1 0-10 % Neutrophils # (Auto) 6.8 1.8-7.8 10^3/uL Lymphocytes # (Auto) 2.5 1.0-4.0 10^3/uL Monocytes # (Auto) 0.7 0.0-1.0 10^3/uL Eosinophils # (Auto) 0.1 0.0-0.3 10^3/uL Basophils # (Auto) 0.1 0.0-0.1 10^3/uL Immature Granulocyte # (Auto) 0.0 0.0-0.1 10^3/uL Sodium Level 141 135-145 MMOL/L Potassium Level 3.8 3.6-5.0 MMOL/L Chloride Level 105 98-107 MMOL/L Carbon Dioxide Level 24 21-32 MMOL/L Anion Gap 12 5-14 MMOL/L Blood Urea Nitrogen 9 7-18 MG/DL Creatinine 0.96 0.60-1.30 MG/DL Estimat Glomerular Filtration Rate 115 BUN/Creatinine Ratio 9 Glucose Level 91 70-105 MG/DL Calcium Level 9.2 8.5-10.1 MG/DL Corrected Calcium 9.1 8.5-10.1 MG/DL Total Bilirubin 0.3 0.1-1.0 MG/DL Aspartate Amino Transf (AST/SGOT) 20 5-34 U/L Alanine Aminotransferase (ALT/SGPT) 47 0-55 U/L Alkaline Phosphatase 53 40-136 U/L Troponin I < 0.028 <0.028 NG/ML C-Reactive Protein High Sensitivity 0.58 H 0.00-0.50 MG/DL Total Protein 7.0 6.4-8.2 GM/DL Albumin 4.1 3.2-4.5 GM/DL Lipase 69 8-78 U/L My Orders Orders - EUN CEBALLOS Continuous Ekg Monitoring (01/28/22 23:19) Cbc With Automated Diff (01/28/22 23:50) Comprehensive Metabolic Panel (01/28/22 23:50) Hs C Reactive Protein (01/28/22 23:50) Lipase (01/28/22 23:50) Troponin I [place] (01/28/22 23:50) Ketorolac Injection (Toradol Injection) (01/29/22 00:00) Chest Pa/Lat (2 View) (01/29/22 00:01) Ekg Tracing (01/28/22 23:38) Medications Given in ED Vital Signs/I&O 01/28/22 01/29/22 23:26 01:12 Temp 36.9 Pulse 91 81 Resp 18 20 B/P (MAP) 148/100 (116) 131/94 Pulse Ox 100 99 O2 Delivery Room Air Room Air Blood Pressure Mean: 116 Progress Progress Note : Time: 23:55 Progress Note Suspect soft tissue chest wall source of his pain. We will give him some Toradol and check some basic labs including a troponin to rule out myocarditis. No signs of illness. Aseptic vital signs. Initial ECG Impression Date: Jan 28, 2022 Initial ECG Impression Time: 23:38 Initial ECG Rate: 75 Initial ECG Rhythm: Normal Sinus Initial ECG Intervals: Normal Initial ECG Impression: Normal Initial ECG Comparisson: No Previous ECG Available Comment Normal sinus rhythm without clinically relevant ST changes or depression. Diagnostic Imaging Diagonstic Imaging: Xray Plain Films/CT/US/NM/MRI: chest Comments No acute cardiopulmonary processes on a two-view chest x-ray. [facility] [place] NAME: NATIVIDAD ARRIAGA [facility] REC#: [id number] PT STATUS: DEP ER : 2000 PHYSICIAN: EUN CEBALLOS MD ADMIT DATE: 01/28/22/ER Signed Date of Exam:01/29/22 CHEST PA/LAT (2 VIEW) EXAMINATION: Chest 2 view HISTORY: Chest pain COMPARISON: None available. FINDINGS: Heart size and pulmonary vasculature are normal. The lungs are clear without consolidation, pleural effusion, or pneumothorax. The osseous structures are intact. IMPRESSION: 1. No acute radiographic abnormality in the chest. Dictated by: Dictated on workstation # [id number] Dict: 01/29/22810 Trans: 01/29/22910 [facility] [id number] Interpreted by: GLADIS MAHONEY DO Electronically signed by: GLADIS MAHONEY DO 01/29/22910 Reviewed: Reviewed by Me Departure Impression Primary Impression: Chest wall pain Disposition: HOME, SELF-CARE Condition: Stable Departure-Patient Inst. Decision time for Depature: 01:07 Referrals: NO,LOCAL PHYSICIAN (PCP/Family) Primary Care Physician Patient Instructions: Costochondritis (DC) Add. Discharge Instructions: Naproxen 500 mg twice a day as necessary for chest wall pain until it goes away. You may also use Tylenol 1000 mg every 8 hours as needed for breakthrough pain. Topical creams such as icy hot or Biofreeze. Follow-up with a chiropractor or your primary care doctor if you not seeing some improvement. All discharge instructions reviewed with patient and/or family. Voiced understanding. Scripts Naproxen (Naprosyn) 500 Mg Tablet 500 MG PO BID for 14 Days, #30 TAB 0 Refills Prov: EUN CEBALLOS 01/29/22 Work/School Note: Work Release Form Date Seen in the Emergency Department: Jan 29, 2022 Return to Work: Jan 30, 2022 Restrictions: No Restrictions EUN CEBALLOS Jan 28, 2022 23:49
[2022-01-29] MEDS ORDERED: KETOROLAC 30 MG/ML VIAL IVP ONE
[2022-01-29 00:24] LABS: BASOPHILS # (AUTO) 0.1 10^3/uL (0.0-0.1); BASOPHILS % (AUTO) 1 % (0-10); EOSINOPHILS # (AUTO) 0.1 10^3/uL (0.0-0.3); EOSINOPHILS % (AUTO) 1 % (0-10); HEMATOCRIT 39 % (40-54); HEMOGLOBIN 13.2 g/dL (13.3-17.7); LYMPHOCYTES # (AUTO) 2.5 10^3/uL (1.0-4.0); LYMPHOCYTES % (AUTO) 24 % (12-44); MEAN CORPUSCULAR HEMOGLOBIN 30 pg (25-34); MEAN CORPUSCULAR HGB CONC 34 g/dL (32-36); MEAN CORPUSCULAR VOLUME 88 fL (80-99); MEAN PLATELET VOLUME 12.4 fL (9.0-12.2); MONOCYTES # (AUTO) 0.7 10^3/uL (0.0-1.0); MONOCYTES % (AUTO) 7 % (0-12); NEUTROPHILS # (AUTO) 6.8 10^3/uL (1.8-7.8); NEUTROPHILS % (AUTO) 67 % (42-75); PLATELET COUNT 215 10^3/uL (130-400); WHITE BLOOD COUNT 10.2 10^3/uL (4.3-11.0)
[2022-01-29 00:41] LABS: ALBUMIN 4.1 GM/DL (3.2-4.5); CHLORIDE 105 MMOL/L (98-107); POTASSIUM 3.8 MMOL/L (3.6-5.0); SODIUM 141 MMOL/L (135-145)
[2022-01-29 00:42] LABS: CALCIUM 9.2 MG/DL (8.5-10.1)
[2022-01-29 00:43] LABS: GLUCOSE 91 MG/DL (70-105)
[2022-01-29 00:45] LABS: BILIRUBIN,TOTAL 0.3 MG/DL (0.1-1.0); CARBON DIOXIDE 24 MMOL/L (21-32)
[2022-01-29 00:47] LABS: ALKALINE PHOSPHATASE 53 U/L (40-136); CREATININE SERUM 0.96 MG/DL (0.60-1.30); GFR ESTIMATED 115
[2022-01-29 00:48] LABS: BUN/CREATININE RATIO 9
[2022-01-29 00:50] LABS: ALANINE AMINOTRANSFERASE 47 U/L (0-55); LIPASE 69 U/L (8-78)
[2022-01-29] MEDS ORDERED: NAPR-1071 PO (01:10)
[2022-01-29 01:12] VITALS: BP 131/94
--- NOTE | 2022-01-29 08:14 | Diagnostic Imaging Report ---
EXAMINATION: Chest 2 view HISTORY: Chest pain COMPARISON: None available. FINDINGS: Heart size and pulmonary vasculature are normal. The lungs are clear without consolidation, pleural effusion, or pneumothorax. The osseous structures are intact. IMPRESSION: 1. No acute radiographic abnormality in the chest. Dictated by: Dictated on workstation # [id number]
== END 2022-01-29 01:24 | disposition home or self-care (01) ==
LOC: EDUNIT# 23:17 → ER 23:21
DX: R07.89 Other chest pain (principal); E66.9 Obesity, unspecified; F17.210 Nicotine dependence, cigarettes, uncomplicated; Z68.37 Body mass index [BMI] 37.0-37.9, adult; Z28.310 Unvaccinated for COVID-19
CPT/HCPCS: 36415; 71046; 80053; 83690; 84484; 85025; 86141; 93005

== ENCOUNTER → 2022-02-12 | Emergency (ER) | payer SELFPAY ==
[~2022-02-12] VITALS: Ht 190.5 cm; Wt 136.1 kg
[~2022-02-12] MED LIST changes: +NAPR-1071 PO
[2022-02-12 14:59] LABS: BASOPHILS # (AUTO) 0.1 10^3/uL (0.0-0.1); BASOPHILS % (AUTO) 1 % (0-10); EOSINOPHILS # (AUTO) 0.1 10^3/uL (0.0-0.3); EOSINOPHILS % (AUTO) 1 % (0-10); HEMATOCRIT 39 % (40-54); LYMPHOCYTES # (AUTO) 1.8 10^3/uL (1.0-4.0); LYMPHOCYTES % (AUTO) 19 % (12-44); MEAN CORPUSCULAR HEMOGLOBIN 31 pg (25-34); MEAN CORPUSCULAR HGB CONC 36 g/dL (32-36); MEAN CORPUSCULAR VOLUME 86 fL (80-99); MEAN PLATELET VOLUME 12.7 fL (9.0-12.2); MONOCYTES # (AUTO) 0.4 10^3/uL (0.0-1.0); MONOCYTES % (AUTO) 4 % (0-12); NEUTROPHILS # (AUTO) 7.3 10^3/uL (1.8-7.8); NEUTROPHILS % (AUTO) 75 % (42-75); PLATELET COUNT 211 10^3/uL (130-400); WHITE BLOOD COUNT 9.7 10^3/uL (4.3-11.0)
[2022-02-12 15:23] LABS: ALBUMIN 4.3 GM/DL (3.2-4.5); POTASSIUM 3.8 MMOL/L (3.6-5.0)
--- NOTE | 2022-02-12 15:23 | Diagnostic Imaging Report ---
INDICATION: Chest pain x3 weeks. TECHNIQUE: Two view chest 3:15 PM CORRELATION STUDY: 01/29/2022 FINDINGS: The heart size, mediastinal configuration and pulmonary vasculature are within normal limits. The lungs are clear with no consolidating infiltrate. There is no significant pleural effusion or pneumothorax. Visualized osseous structures are unremarkable. IMPRESSION: 1. Negative for acute abnormality of the chest. Dictated by: Dictated on workstation # [id number]
[2022-02-12 15:24] LABS: CALCIUM 9.4 MG/DL (8.5-10.1)
[2022-02-12 15:25] LABS: TOTAL PROTEIN 7.4 GM/DL (6.4-8.2)
[2022-02-12 15:27] LABS: BILIRUBIN,TOTAL 0.3 MG/DL (0.1-1.0)
--- NOTE | 2022-02-12 16:31 | ED Chest Pain ---
General Chief Complaint: Chest Pain Stated Complaint: CHEST PAIN Nursing Triage Note: PT AMB TO ED BY POV WITH C/O CP X 3 WKS. PT REPORTS CP IS THE SAME WHEN HE WAS SEEN HERE BEFORE. CP INTERMITTENT DULL, NON RADIATING. DENIES BOYLE, SOB, N/V/D, FEVER, OR ANY OTHER SX AT THIS TIME. Source: patient Exam Limitations: no limitations History of Present Illness Date Seen by Provider: Feb 12, 2022 Time Seen by Provider: 15:14 Initial Comments 21-year-old male presents the Emergency Department today for chest pain. Is a sharp stabbing pain in his left lateral chest wall that radiates down to his left lower chest wall. It lasts about 2 or 3 seconds at a time and happens about 10-12 times per day. He was seen here on 01/28 for similar events. He states they have persisted. No hemoptysis, cough. No shortness of breath. No abdominal pain or changes in bowel or bladder habits. No sick contacts fevers or chills Allergies and Home Medications Allergies Coded Allergies: No Known Drug Allergies (Unverified , 09/11/20) Patient Home Medication List Home Medication List Reviewed: Yes Dicyclomine HCl (Dicyclomine HCl) 20 Mg Tablet, 20 MG PO Q6H PRN for abdominal cramping Prescribed by: JUAN KIRKPATRICK on 11/16/21 0730 Hydrocodone Bit/Acetaminophen (HYDROcodone/APAP 10/325 TABLET) 1 Ea Tab, 1 TAB PO Q6H Prescribed by: MEETA CLARK on 09/11/20 1303 Naproxen (Naprosyn) 500 Mg Tablet, 500 MG PO BID Prescribed by: EUN CEBALLOS on 01/29/22 0110 Review of Systems Review of Systems Constitutional: no symptoms reported EENTM: No Symptoms Reported Respiratory: No Symptoms Reported Cardiovascular: Chest Pain Gastrointestinal: No Symptoms Reported Genitourinary: No Symptoms Reported Musculoskeletal: no symptoms reported Skin: no symptoms reported Psychiatric/Neurological: No Symptoms Reported Endocrine: No Symptoms Reported Hematologic/Lymphatic: No Symptoms Reported Past Rbbxozr-Vcuzxu-Gtilhc Hx Patient Social History Tobacco Use?: Yes Tobacco type used: Cigarettes Smoking Status: Current Everyday Smoker Use of E-Cig and/or Vaping dev: Yes E-Cig or Vaping type used: Nicotine Use of E-Cig and/or Vaping Bebo: Current Everyday User Substance use?: Yes Substance type: Marijuana Substance frequency: Once in a while Alcohol Use?: Yes Alcohol type: Beer Alcohol Frequency: Once in a while Pt feels they are or have been: No Immunizations Up To Date Tetanus Booster (TDap): Unknown Influenza Vaccine Up-to-Date: No; Not Current Seasonal Allergies Seasonal Allergies: No Past Medical History Surgery/Hospitalization HX: DENIES Surgeries: Yes (PILONIDAL CYST REMOVED) Respiratory: No Cardiac: No Neurological: No Genitourinary: No Gastrointestinal: No Musculoskeletal: No Endocrine: No HEENT: No Cancer: No Psychosocial: No Integumentary: Yes (PILONIDAL CYST REMOVED) Blood Disorders: No Adverse Reaction/Blood Tranf: No Family Medical History Reviewed Nursing Family Hx No Pertinent Family Hx Physical Exam Vital Signs Vital Signs - First Documented 02/12/22 14:38 Temp 36.9 Pulse 90 Resp 18 B/P (MAP) 150/103 (119) Pulse Ox 97 O2 Delivery Room Air Capillary Refill : Height, Weight, BMI Height: '" Weight: lbs. oz. kg; 37.00 BMI Method:Actual General Appearance: No Apparent Distress, WD/WN HEENT: PERRL/EOMI, TMs Normal, Normal ENT Inspection, Pharynx Normal Neck: Normal Inspection, Non Tender, Supple Respiratory: Chest Non Tender, Lungs Clear, Normal Breath Sounds, No Accessory Muscle Use, No Respiratory Distress Cardiovascular: Regular Rate, Rhythm, No Edema, No Gallop, No JVD, No Murmur, Normal Peripheral Pulses Gastrointestinal: Normal Bowel Sounds, No Organomegaly, No Pulsatile Mass, Non Tender, Soft Extremity: Normal Capillary Refill, Normal Inspection, Normal Range of Motion, Non Tender, No Calf Tenderness Skin: Normal Color, Warm/Dry Progress/Results/Core Measures Results/Orders Lab Results Laboratory Tests Test 02/12/22 14:53 Range/Units White Blood Count 9.7 4.3-11.0 10^3/uL Red Blood Count 4.56 4.30-5.52 10^6/uL Hemoglobin 14.0 13.3-17.7 g/dL Hematocrit 39 L 40-54 % Mean Corpuscular Volume 86 80-99 fL Mean Corpuscular Hemoglobin 31 25-34 pg Mean Corpuscular Hemoglobin Concent 36 32-36 g/dL Red Cell Distribution Width 12.0 10.0-14.5 % Platelet Count 211 130-400 10^3/uL Mean Platelet Volume 12.7 H 9.0-12.2 fL Immature Granulocyte % (Auto) 0 % Neutrophils (%) (Auto) 75 42-75 % Lymphocytes (%) (Auto) 19 12-44 % Monocytes (%) (Auto) 4 0-12 % Eosinophils (%) (Auto) 1 0-10 % Basophils (%) (Auto) 1 0-10 % Neutrophils # (Auto) 7.3 1.8-7.8 10^3/uL Lymphocytes # (Auto) 1.8 1.0-4.0 10^3/uL Monocytes # (Auto) 0.4 0.0-1.0 10^3/uL Eosinophils # (Auto) 0.1 0.0-0.3 10^3/uL Basophils # (Auto) 0.1 0.0-0.1 10^3/uL Immature Granulocyte # (Auto) 0.0 0.0-0.1 10^3/uL Sodium Level 139 135-145 MMOL/L Potassium Level 3.8 3.6-5.0 MMOL/L Chloride Level 107 98-107 MMOL/L Carbon Dioxide Level 21 21-32 MMOL/L Anion Gap 11 5-14 MMOL/L Blood Urea Nitrogen 11 7-18 MG/DL Creatinine 1.00 0.60-1.30 MG/DL Estimat Glomerular Filtration Rate 109 BUN/Creatinine Ratio 11 Glucose Level 136 H 70-105 MG/DL Calcium Level 9.4 8.5-10.1 MG/DL Corrected Calcium 9.2 8.5-10.1 MG/DL Total Bilirubin 0.3 0.1-1.0 MG/DL Aspartate Amino Transf (AST/SGOT) 26 5-34 U/L Alanine Aminotransferase (ALT/SGPT) 55 0-55 U/L Alkaline Phosphatase 56 40-136 U/L Troponin I < 0.028 <0.028 NG/ML Total Protein 7.4 6.4-8.2 GM/DL Albumin 4.3 3.2-4.5 GM/DL My Orders Orders - ANNE-MARIE DE LA O DO Ekg Tracing (02/12/22 14:43) Cbc With Automated Diff (02/12/22 14:46) Ekg Tracing (02/12/22 14:46) Comprehensive Metabolic Panel (02/12/22 14:46) Monitor-Rhythm Ecg Trace Only (02/12/22 14:46) Troponin I Chirag (02/12/22 14:46) Chest Pa/Lat (2 View) (02/12/22 14:46) Vital Signs/I&O 02/12/22 14:38 Temp 36.9 Pulse 90 Resp 18 B/P (MAP) 150/103 (119) Pulse Ox 97 O2 Delivery Room Air Blood Pressure Mean: 119 Comment Sinus rhythm at a rate of 93 bpm. Normal intervals. Normal axis. No ST or T w ave abnormalities. No ectopy. No STEMI Diagnostic Imaging Diagonstic Imaging: Xray Plain Films/CT/US/NM/MRI: chest Comments No acute findings Departure Communication (Admissions) Patient is hemodynamically stable with no red flag symptoms. Pain is not p resent on arrival and only lasts a few seconds when present, multiple times per day may be tender as well. EKG is nonischemic. Cardiac enzymes negative once again here as they were on the when he was seen for the same. Discharged in stable condition with supportive care. I suspect musculoskeletal symptoms and I do not suspect this is cardiac or pulmonary in nature. Impression Primary Impression: Chest wall pain Disposition: HOME, SELF-CARE Condition: Stable Departure-Patient Inst. Decision time for Depature: 16:30 Referrals: NO,LOCAL PHYSICIAN (PCP) Primary Care Physician Patient Instructions: Chest Pain That Is Not Caused by the Heart (DC) Add. Discharge Instructions: Continue to use anti-inflammatory medications as needed. Increase your fluids and rest. Follow-up with your primary physician should your symptoms persist. Return to the emergency department should your symptoms change in any way concerning to you. All discharge instructions reviewed with patient and/or family. Voiced understanding. ANNE-MARIE DE LA O DO Feb 12, 2022 16:31
[2022-02-12 16:38] VITALS: BP 128/79
== END ==
LOC: EDUNIT# 14:34 → ER 14:35
DX: R07.89 Other chest pain (principal); F17.210 Nicotine dependence, cigarettes, uncomplicated; Z28.310 Unvaccinated for COVID-19
CPT/HCPCS: 36415; 71046; 80053; 84484; 85025; 93005; 93041